=== PATIENT | female | born 1990 | race Caucasian/White ===

== ENCOUNTER 2019-04-05 14:21 | Emergency (ER) | payer SELFPAY ==
[~2019-04-05] VITALS: Ht 162.6 cm; Wt 59.0 kg
--- NOTE | 2019-04-05 14:48 | NUR ---
CALLED; NO ANSWER
[2019-04-05 15:55] VITALS: BP 139/92
== END 2019-04-05 16:09 | disposition home or self-care (01) ==
LOC: ER 14:21
DX: B34.9 Viral infection, unspecified (principal); I10 Essential (primary) hypertension; F41.9 Anxiety disorder, unspecified; G43.909 Migraine, unspecified, not intractable, without status migrainosus; Z60.2 Problems related to living alone